=== PATIENT | female | born 1955 | race Caucasian/White ===

== ENCOUNTER → 2018-04-14 | Outpatient (CLI) | payer OTHER ==
[~2018-04-14] MED LIST: BEN10 PO; CEP500 PO; ESTR1PAT69 TD; EZET10TA41; EZET1TAB55 PO; FAM20 PO; IBU600 PO; LOR10/325 PO; PER PO; VIVELLE PATCH; [UNRECOGNIZED DRUG - REMARK]
--- NOTE | 2018-04-14 17:09 | RADIOLOGY IMAGING REPORT ---
[place]AC[place] [facility] [place] NAME: Lizette Peck : 1955 MR: [id number] V: [id number] EXAM DATE: ORDERING PHYSICIAN: JUAN JOSÉ OLIVO TECHNOLOGIST: Location: [facility] - [place], [place] Patient: Lizette Peck : 1955 Visit/Account:[id number] Date of Sevice: 04/14/2018 DEXA Scan Clinical history: screening. Comparison: None. LUMBAR SPINE: The bone mineral density (BMD) measured from L1-L4 correlates with a Z-score of 2.4 and a T-score of 0.7 which is within normal range as defined by the World Health Organization. The corresponding risk of fracture in the lumbar spine is not increased compared with a young adult reference population. HIP: Bone mineral density (BMD) measured in the Left total hip region correlates with a Z-score of 0.0 and a T-score of -1.2. The T-score of the femoral neck is -1.6. The lower of the two T scor es is osteopenic which is defined as defined by the World Health Organization. The corresponding r isk of fracture in the hip is moderately increased compared with a young adult reference population. Bone mineral density (BMD) measured in the Left Femoral Neck region measures 0.813 g/cm?. Impression: 1. Lumbar spine: Within normal range. 2. Left Total Hip: Osteopenic. The next DEXA scan of this patient should include the following sites: L1-L4 and Left hip. FRAX? WHO Fracture Risk Assessment Tool link: <http://www.shef.ac.uk/FRAX/tool.jsp?locationValue=9> PLEASE NOTE: 1) The World Health Organization defines low BMD as follows: T-score Normal > -1 Osteopenia < -1 and > -2.5 Osteoporosis < -2.5 without fractures Established osteoporosis < -2.5 with fractures 2) In general, you may wish to consider: Diagnosis Treatment Follow-up DEXA Normal BMD Prevention 2-3 years Osteopenia Prevention/therapy 1-2 years Osteoporosis Therapy Yearly 3) Fracture risk estimated from the T-score is more accurate for vertebral fractures (often spontane ous) than for hip fractures. Report Dictated By: Pradeep Underwood MD at 04/14/2018 5:04 PM Report E-Signed By: Pradeep Underwood MD at 04/14/2018 5:05 PM WSN:[email or web address]
--- NOTE | 2018-04-14 18:10 | RADIOLOGY IMAGING REPORT ---
FACILITY: [facility] PATIENT NAME: Lizette Peck : 1955 MR: [id number] V: [id number] EXAM DATE: ORDERING PHYSICIAN: JUAN JOSÉ OLIVO TECHNOLOGIST: Location: [facility] Patient: Lizette Peck : 1955 Visit/Account:[id number] Date of Sevice: 04/14/2018 THYROID HISTORY: Family history of thyroid cancer. COMPARISON: Previous thyroid ultrasound from March 2016.The a portable images from March 2016 ar e not available. The information on the study report is available and has been reviewed. FINDINGS: Thyroid size: Normal. Right lobe: 4.5 x 1.9 x 2.2 cm Left lobe: 4.5 x 1.5 x 2.1 cm Isthmus: 5.7 mm Thyroid nodules: Right lobe: On the right, multiple small hypoechoic foci and cysts are noted. Reidentified is a spongiform, solid slightly isoechoic nodule in the mid aspect of the right lobe measuring 1.3 x 1.1 x 1.0 cm. A thin rim of calcification is noted. Otherwise, subcentimeter nodules Left lobe: Reidentified on the left is hypoechoic to anechoic cystic nodules. No evidence of a enlarging or concerning nodule. Isthmus: Along the right aspect of the isthmus, there is a 7 mm partially calcified nodule Thyroid vascularity: Within normal limits. IMPRESSION: 1. Compared to previous examination, stable overall appearance of bilateral thyroid nodules, the lar gest of which is on the right and measures approximately 1.3 cm. Report Dictated By: Ish Mullen MD at 04/14/2018 5:59 PM Report E-Signed By: Ish Mullen MD at 04/14/2018 6:06 PM WSN:[email or web address]
== END ==
LOC: US 01:25
PROVIDERS: ATTEND Family Medicine
DX: E04.2 Nontoxic multinodular goiter (principal); M85.88 Other specified disorders of bone density and structure, other site
CPT/HCPCS: 76536; 77080